=== PATIENT | female | born 1965 | race Caucasian/White ===

== ENCOUNTER 2025-03-21 07:14 | Inpatient (IN) | payer BC, OTHER ==
[~2025-03-21] VITALS: Ht 177.8 cm; Wt 97.3 kg
[~2025-03-21 07:14] MED LIST: MELA3TAB27 PO; METO25TA5 PO; OMEP20CA74 OR
--- NOTE | 2025-03-21 08:10 | ED.PDOC ---
Altered Mental Status HPI Comments 59 y/o F, brought in by , with PMHx of HTN, HLD, and depression presents to the ED for CC of ALOC. Patient's reports, he received a call from his at 0600 this morning (03/21/24) stating that she did not know what to do or where she was at. Patient's relays, that patient was last seen normal at 0515 this morning (03/21/25) when she got up from bed to get ready for work. Patient's endorse, that once he returned home patient was displaying increased confusion and disorientation asking constantly what day it was. Upon arrival to the ED, patient is able to recall her name and past surgery's however, is unable to recall the day and year. At this time patient is A&Ox2; transferred to ER bed 19 for further care. No other symptoms or modifiers are obtainable. Chief Complaint: ALOC Time Seen by MD: 07:45 Primary Care Provider: NONE Reviewed Notes: Nurses Notes, Medications, Allergies Allergies: Coded Allergies: NO KNOWN ALLERGIES (Unverified , 04/14/16) Home Meds Reported Medications Melatonin (KP MELATONIN) 3 Mg Tab, 1 TAB PO HS, #30 TAB 2 Refills 04/14/16 Omeprazole (PRILOSEC) 20 Mg Cap, 40 MG OR DAILY, CAP 04/14/16 Metoprolol Tartrate (Metoprolol Tartrate) 25 Mg Tab, 25 MG PO QPM for 30 Days, MG 04/14/16 Information Source: Patient Mode of Arrival: Ambulatory Severity: Moderate Timing: Hours Duration: Since onset Prehospital treatment: None Quality: Change in Behavior, Confusion Recent: None History of: None Associated Signs and Symptoms: None Past Medical History PAST MEDICAL HISTORY: Depression, High Lipids, HTN Surgical History: Unknown MEDICAL LABORATORY TECHNICIAN History: Unknown Family History Family History: Unknown Social History Smoker: Non-Smoker Alcohol: Denies ETOH Use Drugs: Denies Drug Use Lives In: Home Unable to Obtain due to: Altered Mental Status All Other Systems: Reviewed and Negative Physical Exam General Appearance: Moderate Distress HEENT: Normal ENT Inspection, Pharynx Normal, TMs Normal Neck: Full Range of Motion, Non-Tender, Normal, Normal Inspection Respiratory: Chest Non-Tender, Lungs Clear, No Accessory Muscle Use, No Respiratory Distress, Normal Breath Sounds Cardiovascular: No Edema, No JVD, No Murmur, No Gallop, Normal Peripheral Pulses, Regular Rate/Rhythm Breast Exam: Deferred Gastrointestinal: No Organomegaly, Non Tender, No Pulsatile Mass, Normal Bowel Sounds, Soft Genitalia: Deferred Pelvic: Deferred Rectal: Deferred Extremities: No calf tenderness, Normal capillary refill, Normal inspection, Normal range of motion, Non-tender, No pedal edema Musculoskeletal : Apperance: Normal Neurologic: Disoriented, No Motor Deficits, No Sensory Deficits Cerebellar Function: Normal Reflexes: Normal Skin: Dry, Normal Color, Warm Peripheral Pulses: 3+ Radial (R), 3+ Radial (L) Lymphatic: No Adenopathy Was a procedure done? Was a procedure done?: No Differential Diagnosis (ALOC) Differential Diagnosis: Dehydration, Hypoglycemia, DKA X-Ray, Labs, Meds, VS Vital Signs Date Time Temp Pulse Resp B/P (MAP) Pulse Ox O2 Delivery O2 Flow Rate FiO2 03/21/25 10:34 152/84 03/21/25 10:00 52 13 152/84 (106) 98 03/21/25 09:23 164/79 03/21/25 08:30 51 10 99 Room Air* 0 21 03/21/25 08:15 97.7 54 14 178/87 (117) 99 97.7 03/21/25 08:01 55 03/21/25 07:20 97.6 66 16 149/90 (109) 99 97.6 Lab Test 03/21/25 08:02 03/21/25 07:57 03/21/25 07:55 Range/Units White Blood Count 5.4 4.4-10.8 10^3/uL Red Blood Count 4.96 4.0-5.20 10^6/uL Hemoglobin 15.1 12.2-16.2 g/dL Hematocrit 45.1 36.0-46.0 % Mean Corpuscular Volume 90.8 80.0-100.0 fL Mean Corpuscular Hemoglobin 30.4 28.0-32.0 pg Mean Corpuscular Hemoglobin Concent 33.5 32.0-36.0 g/dL Red Cell Distribution Width 13.9 11.8-14.3 % Platelet Count 202 140-450 10^3/uL Mean Platelet Volume 9.2 6.9-10.8 fL Neutrophils (%) (Auto) 59.9 37.0-80.0 % Lymphocytes (%) (Auto) 25.8 10.0-50.0 % Monocytes (%) (Auto) 9.5 0.0-12.0 % Eosinophils (%) (Auto) 4.3 0.0-7.0 % Basophils (%) (Auto) 0.5 0.0-2.0 % Neutrophils # (Auto) 3.2 1.6-8.6 10 ^3/uL Lymphocytes # (Auto) 1.4 0.4-5.4 10 ^3/uL Monocytes # (Auto) 0.5 0-1.3 10 ^3/uL Eosinophils # (Auto) 0.2 0-0.8 10 ^3/uL Basophils # (Auto) 0 0-0.2 10 ^3/uL Nucleated Red Blood Cells 0.2 % Sodium Level 142 136-145 mmol/L Potassium Level 4.3 3.5-5.1 mmol/L Chloride Level 108 H 98-107 mmol/L Carbon Dioxide Level 26 20-31 mmol/L Anion Gap 8 5-15 Blood Urea Nitrogen 13 9-23 mg/dL Creatinine 0.77 0.550-1.02 mg/dL Glomerular Filtration Rate Calc 89 >90 mL/min BUN/Creatinine Ratio 16.9 10.0-20.0 Serum Glucose 104 74-106 mg/dL Calcium Level 10.2 8.7-10.4 mg/dL Total Bilirubin 0.8 0.2-1.0 mg/dL Aspartate Amino Transferase (AST) 24 <34 U/L Alanine Aminotransferase (ALT) 33 7-40 U/L Alkaline Phosphatase 108 46-116 U/L Total Protein 7.4 5.7-8.2 g/dL Albumin 4.9 H 3.2-4.8 g/dL Plasma/Serum Blood Alcohol < 3.0 <10 mg/dL POC Glucose 105 70-106 mg/dl Urine Color Light-yellow Yellow Urine Clarity Clear Clear Urine pH 6.5 5.0-9.0 Urine Specific [place] 1.007 1.001-1.035 Urine Protein Negative Negative Urine Ketones Negative Negative Urine Blood Negative Negative /uL Urine Nitrite Negative Negative Urine Bilirubin Negative Negative Urine Urobilinogen Normal Negative mg/dL Urine Leukocyte Esterase 1+ Negative /uL Urine RBC None seen 0 - 4 /hpf Urine Microscopic WBC 1 0-5 /HPF Urine Squamous Epithelial Cells Few <5 /hpf Urine Bacteria None seen None Seen /hpf Urine Glucose Normal Normal mg/dL Urine Opiates Screen Pending Urine Fentanyl Screen Pending Urine Barbiturates Screen Pending Urine Phencyclidine Screen Pending Urine Amphetamines Screen Pending Urine Benzodiazepines Screen Pending Urine Cocaine Screen Pending Urine Cannabinoids Screen Pending Current Medications Medications (Trade) Dose Ordered Sig/Dale Route Start Time Stop Time Status Last Admin Clonidine HCl (Catapres Tablet) 0.1 mg ONCE ONCE PO 03/21/25 08:15 03/21/25 08:16 DC 03/21/25 09:23 Lorazepam (Ativan Inj) 1 mg ONCE ONCE IV 03/21/25 08:30 03/21/25 08:31 DC 03/21/25 09:23 [place] [id number] Ph: [phone] DIAGNOSTIC IMAGING Diagnostic Imaging Report : [id number] Signed PATIENT: CARIE TRIPATHI JADEEACCT: [id number] UNIT: [id number] : 1965 LOC: ER ROOM / BED: / AGE / SEX: 59 / F ADM STATUS: REG ER SERVICE 0755 ORDERING PHYSICIAN: PRISCILA WESTBROOK MD PROCEDURE(s): HWOCT - HEAD WITHOUT CONTRAST REASON: altered ORDER NUMBER(s): [id number], ACCESSION NUMBER(s): [id number] EXAM: CT HEAD WITHOUT CONTRAST INDICATION: altered TECHNIQUE: CT of the head without intravenous contrast. Radiation Dose Information: CT Dose: CTDI volume is 58.04 mGy. Dose-length product is 1143.76 mGy*cm The dose indicators for CT are the volume Computed Tomography (CT) Dose Index (CTDIvol) and the Dose Length Product (DLP), and are measured in units of mGy and mGy-cm, respectively. These indicators are not patient dose, but values generated from the CT scanner acquisition factors. The report includes radiation exposure data for exposures received during this examination. COMPARISON: None FINDINGS: There is no evidence of acute intracranial hemorrhage, extra-axial collection, mass effect, midline shift, herniation or hydrocephalus. The ventricles, sulci and cisterns are age appropriate. The bhandari-white differentiation is intact. Patchy periventricular and subcortical white matter hypoattenuation is nonspecific but may be related to small vessel ischemic disease. The visualized paranasal sinuses and mastoid air cells are clear. The surrounding soft tissues and osseous structures are unremarkable. IMPRESSION: No acute intracranial abnormality. ATED BY: ANDREA LORD MD DICTATED DATE/TIME: 03/21/25833 SIGNED BY: ANDREA LORD MD SIGNED DATE/TIME: 03/21/25833 CC: Patient disoriented. Vitals stable. Can not remember events. Answering all questions. Blood sugar within normal limits. History of hypertension. Symptoms all started this morning. Possibly will need MRI. Neurology consultation. Unexplained memory loss. Possible early dementia. Blood pressure slightly elevated. Was given clonidine. Explained to significant other. Continue monitoring. Time of 1ST Reevaluation: 08:15 Reevaluation 1ST: Unchanged Patient Education/Counseling: Diagnosis, Treatment Family Education/Counseling: No Family Present SEPSIS Sepsis Screen Date sepsis recognized/suspect: Mar 21, 2025 Time Sepsis recognized/suspect: 719 Recent Procedure: No On Antibiotic Therapy: No Respiratory Rate >20: No Heart Rate >90: No Temp<36 C (96.8 F) or >38.3 C: No SBP <90 or MAP <65 mmHG: No New Acute Mental Status Change: No Is the patient on CPAP, BIPAP,: No Physician Orders Drug Screen (03/21/25 07:55) Director Of Events (03/21/25 07:55) Head Without Contrast (03/21/25 07:55) Vital Signs Date Time Temp Pulse Resp B/P (MAP) Pulse Ox O2 Delivery O2 Flow Rate FiO2 03/21/25 10:34 152/84 03/21/25 10:00 52 13 152/84 (106) 98 03/21/25 09:23 164/79 03/21/25 08:30 51 10 99 Room Air* 0 21 03/21/25 08:15 97.7 54 14 178/87 (117) 99 97.7 03/21/25 08:01 55 03/21/25 07:20 97.6 66 16 149/90 (109) 99 97.6 Laboratory Tests Test 03/21/25 08:02 White Blood Count 5.4 10^3/uL (4.4-10.8) Medications Medications Dose Ordered Sig/Dale Route Start Time Stop Time Status Last Admin Dose Admin Clonidine HCl 0.1 mg ONCE ONCE PO 03/21/25 08:15 03/21/25 08:16 DC 03/21/25 09:23 Lorazepam 1 mg ONCE ONCE IV 03/21/25 08:30 03/21/25 08:31 DC 03/21/25 09:23 Departure 1 Departure Time of Disposition: 08:14 Impression: Primary Impression: Metabolic encephalopathy Additional Impression: HTN (hypertension) Qualified Codes: I10 - Essential (primary) hypertension Disposition: ADMITTED INPATIENT Admit to: Med Surg Condition: Guarded Critical Care Note Critical Care Time?: No Stability Stability form required: No Heart Score Heart Score: Heart Score Response (Comments) Value History N/A 0 EKG N/A 0 Age N/A 0 Risk Factors N/A 0 Troponin N/A 0 Total 0 I personally scribed for PRISCILA WESTBROOK MD ([email or web address]) on 03/21/25 at 08:10. Electronically submitted by Hoda Rodarte ([place]). I personally scribed for PRISCILA WESTBROOK MD ([email or web address]) on 03/21/25 at 08:12. Electronically submitted by Hoda Rodarte ([place]). I personally scribed for PRISCILA WESTBROOK MD ([email or web address]) on 03/21/25 at 08:44. Electronically submitted by Hoda Rodarte ([place]). PRISCILA WESTBROOK MD Mar 21, 2025 08:10
[2025-03-21 08:30] VITALS: PULSE 51; RESP 10; O2SAT 99
--- NOTE | 2025-03-21 08:37 | DVH ---
EXAM: CT HEAD WITHOUT CONTRAST INDICATION: altered TECHNIQUE: CT of the head without intravenous contrast. Radiation Dose Information: CT Dose: CTDI volume is 58.04 mGy. Dose-length product is 1143.76 mGy*cm The dose indicators for CT are the volume Computed Tomography (CT) Dose Index (CTDIvol) and the Dose Length Product (DLP), and are measured in units of mGy and mGy-cm, respectively. These indicators are not patient dose, but values generated from the CT scanner acquisition factors. The report includes radiation exposure data for exposures received during this examination. COMPARISON: None FINDINGS: There is no evidence of acute intracranial hemorrhage, extra-axial collection, mass effect, midline s hift, herniation or hydrocephalus. The ventricles, sulci and cisterns are age appropriate. The bhandari-white differentiation is intact. Patchy periventricular and subcortical white matter hypoattenuation is nonspecific but may be related to small vessel ischemic disease. The visualized paranasal sinuses and mastoid air cells are clear. The surrounding soft tissues and osseous structures are unremarkable. IMPRESSION: No acute intracranial abnormality.
[2025-03-21 08:41] LABS: Basophils # (auto) 0 10 ^3/uL (0-0.2); Basophils % (auto) 0.5 % (0.0-2.0); Eosinophils # (auto) 0.2 10 ^3/uL (0-0.8); Eosinophils % (auto) 4.3 % (0.0-7.0); Hematocrit 45.1 % (36.0-46.0); Hemoglobin 15.1 g/dL (12.2-16.2); Lymphocytes # (auto) 1.4 10 ^3/uL (0.4-5.4); Lymphocytes % (auto) 25.8 % (10.0-50.0); Mean Corpuscular Hemoglobin 30.4 pg (28.0-32.0); Mean Corpuscular Hgb Conc. 33.5 g/dL (32.0-36.0); Mean Corpuscular Volume 90.8 fL (80.0-100.0); Monocytes # (auto) 0.5 10 ^3/uL (0-1.3); Monocytes % (auto) 9.5 % (0.0-12.0); Neutrophils # (auto) 3.2 10 ^3/uL (1.6-8.6); Neutrophils % (auto) 59.9 % (37.0-80.0); Nucleated Red Blood Cells % 0.2 %; Platelet Count (auto) 202 10^3/uL (140-450); Red Blood Cells 4.96 10^6/uL (4.0-5.20); Red Cell Distribution Width 13.9 % (11.8-14.3); White Blood Cell 5.4 10^3/uL (4.4-10.8)
[2025-03-21 08:59] LABS: Alanine Aminotransferase 33 U/L (7-40); Alkaline Phosphatase 108 U/L (46-116); Anion Gap 8 (5-15); Aspartate Aminotransferase 24 U/L (<34); BUN/Creatinine Ratio 16.9 (10.0-20.0); Blood Urea Nitrogen 13 mg/dL (9-23); Calcium 10.2 mg/dL (8.7-10.4); Carbon Dioxide 26 mmol/L (20-31); Glucose 104 mg/dL (74-106); Potassium 4.3 mmol/L (3.5-5.1); Sodium 142 mmol/L (136-145); Total Protein 7.4 g/dL (5.7-8.2)
[2025-03-21 09:00] LABS: Bilirubin, Total 0.8 mg/dL (0.2-1.0)
[2025-03-21 09:02] LABS: Albumin 4.9 g/dL (3.2-4.8); Chloride 108 mmol/L (98-107)
[2025-03-21 09:23] LABS: Blood Alcohol < 3.0 mg/dL (<10)
[2025-03-21] MEDS: cloNIDine HCL 0.1 MG TAB PO ONE (09:23)
[2025-03-21] MEDS: LORazepam 2MG/ML-1ML VIAL IV ONE (09:23)
[2025-03-21 10:19] LABS: Urine Bacteria None Seen /hpf (None Seen)
[2025-03-21 10:32] LABS: Urine Blood Negative /uL (Negative); Urine Clarity Clear (Clear); Urine Color Light-Yellow (Yellow); Urine Protein, UAD Negative (Negative); Urine Specific Gravity 1.007 (1.001-1.035); Urine Squamous Epithelial Cell FEW /hpf (<5); Urine Urobilinogen Normal (Negative); Urine WBC 1 /HPF (0-5); Urine pH 6.5 (5.0-9.0)
[2025-03-21 10:54] LABS: Amphetamine Screen, Urine Neg (NEGATIVE); Barbiturate Scree,Urine Neg (NEGATIVE); Benzodiazephine Screen, Urine Neg (NEGATIVE); Cannabinoid Screen, Urine Neg (NEGATIVE); Cocaine Screen, Urine Neg (NEGATIVE); Opiate Scree,Urine Neg (NEGATIVE); Phencyclidine Screen, Urine Neg (NEGATIVE)
[2025-03-21] MEDS ORDERED: AMLO1TAB22 PO (11:02)
[2025-03-21] MEDS ORDERED: ESCI1TAB36 PO (11:02)
[2025-03-21] MEDS ORDERED: ATOR10TA52 PO (11:02)
[2025-03-21] MEDS ORDERED: NITROGLYCERIN 0.4 MG SL TAB SL PRN (11:15)
[2025-03-21] MEDS ORDERED: ONDANSETRON HCL 4 MG/2 ML VIAL IV PRN (11:15)
[2025-03-21] MEDS ORDERED: HYDROcodone-ACET 5/325MG TAB PO PRN (11:15)
[2025-03-21] MEDS ORDERED: DOCUSATE SOD 100 MG CAP PO PRN (11:15)
[2025-03-21] MEDS ORDERED: MORPHINE SULFATE INJ 2 MG/ml SYRG IV PRN (11:15)
--- NOTE | 2025-03-21 12:13 | DVHHP2 ---
History of Present Illness Reason for Visit: ALOC History of Present Illness Edenilson Banuelos is a 59-year-old female with past medical history of hypertension, hyperlipidemia, and depression, who was brought to the hospital due to ALOC. Per the patient's her last known well time was 0515 this morning (03/21/2025). He states they are both usually up and awake together in the morning. He leaves about 0515 for work then she usually leaves about 0600 and calls him. This morning when he left at 0515 she was good. At about 0600 she called him confused and couldn't remember what she is supposed to do. He told her to just stay home and he would come get her. When he got there she could not remember what she is supposed to do, could remember senior care items, but not short term. She does not know the date, or why she is in the hospital. He states she keeps asking the same questions over and over again to him. Cardiovascular: HTN, hyperipidemia Psych: Depression Past Surgical History: Appendectomy, Cholecystectomy, Hysterectomy Smoke: No ALCOHOL: none Drugs: None Lives: with Family Domestic Violence: Neg Review of Systems Constitutional: No: Fever, Chills, Sweats, Weakness, Malaise, Other Eyes: No: Pain, Vision change, Conjunctivae inflammation, Eyelid inflammation, Other, Redness ENT: No: Ear pain, Ear discharge, Nose pain, Nose discharge, Nose congestion, Mouth pain, Mouth swelling, Throat pain, Throat swelling, Other Respiratory: No: Cough, Dry, Shortness of breath, SOB with excertion, Wheezing, Hemoptysis, Pleuritic Pain, Sputum, Wheezing, Other Cardiovascular: No: Chest Pain, Palpitations, Orthopnea, Paroxysmal Noc. Dyspnea, Edema, Lt Headedness, Other Gastrointestinal: No: Nausea, Vomiting, Abdominal Pain, Diarrhea, Constipation, Melena, Hematochezia, Other Genitourinary: No Dysuria, No Frequency, No Incontinence, No Hematuria, No Retention, No Other Musculoskeletal: No: other, neck pain, shoulder pain, arm pain, back pain, hand pain, leg pain, foot pain Skin: No: Rash, Lesions, Jaundice, Bruising, Other Neurological: Change in speech (repetitive, ), Confusion; No: Weakness, Numbness, Incoordination, Seizures, Other Allergies: Coded Allergies: NO KNOWN ALLERGIES (Unverified , 04/14/16) Medications Current Medications Medications Dose Ordered Sig/Dale Route Start Time Stop Time Status Last Admin Dose Admin Acetaminophen/ Hydrocodone Bitart 1 tab Q4HP PRN PO 03/21/25 11:15 UNV Ondansetron HCl 4 mg Q4HP PRN IV 03/21/25 11:15 UNV Docusate Sodium 100 mg BIDPRN PRN PO 03/21/25 11:15 UNV Acetaminophen 650 mg Q6HP PRN PO 03/21/25 11:15 UNV Nitroglycerin 0.4 mg Q5MINP PRN SL 03/21/25 11:15 UNV Morphine Sulfate 2 mg Q30M PRN IV 03/21/25 11:15 UNV Amlodipine Besylate 5 mg HS PO 03/21/25 22:00 UNV Patient Own Medication 1 tab HS PO 03/21/25 22:00 UNV Patient Own Medication 1 tab DAILY PO 03/22/25 10:00 UNV Exam Vital Signs Vital Signs Date Time Temp Pulse Resp B/P (MAP) Pulse Ox O2 Delivery O2 Flow Rate FiO2 03/21/25 10:34 152/84 03/21/25 10:00 52 13 98 03/21/25 08:30 Room Air* 0 21 03/21/25 08:15 97.7 97.7 General Appearance: Alert, Oriented X3, Cooperative, mild distress HEENT: Atraumatic, PERRLA Respiratory: Clear to auscultation, Normal air movement Cardiovascular: Normal S1, Normal S2, Other (SB-SR) Abdominal: Normal bowel sounds, Soft, No tenderness, No hepatospenomegaly Extremities: No clubbing, No cyanosis, No edema, Normal pulses, No tenderness/swelling Skin: No rashes, No breakdown, No significant lesion Neuro: Normal gait, Normal speech, Strength at 5/5 X4 ext, Normal tone Psych/Mental Status: Mental status NL, Mood NL Labs/Xrays Labs Test 03/21/25 08:02 03/21/25 07:57 03/21/25 07:55 Range/Units White Blood Count 5.4 4.4-10.8 10^3/uL Red Blood Count 4.96 4.0-5.20 10^6/uL Hemoglobin 15.1 12.2-16.2 g/dL Hematocrit 45.1 36.0-46.0 % Mean Corpuscular Volume 90.8 80.0-100.0 fL Mean Corpuscular Hemoglobin 30.4 28.0-32.0 pg Mean Corpuscular Hemoglobin Concent 33.5 32.0-36.0 g/dL Red Cell Distribution Width 13.9 11.8-14.3 % Platelet Count 202 140-450 10^3/uL Mean Platelet Volume 9.2 6.9-10.8 fL Neutrophils (%) (Auto) 59.9 37.0-80.0 % Lymphocytes (%) (Auto) 25.8 10.0-50.0 % Monocytes (%) (Auto) 9.5 0.0-12.0 % Eosinophils (%) (Auto) 4.3 0.0-7.0 % Basophils (%) (Auto) 0.5 0.0-2.0 % Neutrophils # (Auto) 3.2 1.6-8.6 10 ^3/uL Lymphocytes # (Auto) 1.4 0.4-5.4 10 ^3/uL Monocytes # (Auto) 0.5 0-1.3 10 ^3/uL Eosinophils # (Auto) 0.2 0-0.8 10 ^3/uL Basophils # (Auto) 0 0-0.2 10 ^3/uL Nucleated Red Blood Cells 0.2 % Sodium Level 142 136-145 mmol/L Potassium Level 4.3 3.5-5.1 mmol/L Chloride Level 108 H 98-107 mmol/L Carbon Dioxide Level 26 20-31 mmol/L Anion Gap 8 5-15 Blood Urea Nitrogen 13 9-23 mg/dL Creatinine 0.77 0.550-1.02 mg/dL Glomerular Filtration Rate Calc 89 >90 mL/min BUN/Creatinine Ratio 16.9 10.0-20.0 Serum Glucose 104 74-106 mg/dL Calcium Level 10.2 8.7-10.4 mg/dL Total Bilirubin 0.8 0.2-1.0 mg/dL Aspartate Amino Transferase (AST) 24 <34 U/L Alanine Aminotransferase (ALT) 33 7-40 U/L Alkaline Phosphatase 108 46-116 U/L Total Protein 7.4 5.7-8.2 g/dL Albumin 4.9 H 3.2-4.8 g/dL Plasma/Serum Blood Alcohol < 3.0 <10 mg/dL POC Glucose 105 70-106 mg/dl Urine Color Light-yellow Yellow Urine Clarity Clear Clear Urine pH 6.5 5.0-9.0 Urine Specific [place] 1.007 1.001-1.035 Urine Protein Negative Negative Urine Ketones Negative Negative Urine Blood Negative Negative /uL Urine Nitrite Negative Negative Urine Bilirubin Negative Negative Urine Urobilinogen Normal Negative mg/dL Urine Leukocyte Esterase 1+ Negative /uL Urine RBC None seen 0 - 4 /hpf Urine Microscopic WBC 1 0-5 /HPF Urine Squamous Epithelial Cells Few <5 /hpf Urine Bacteria None seen None Seen /hpf Urine Glucose Normal Normal mg/dL Urine Opiates Screen Neg NEGATIVE Urine Fentanyl Screen Neg NEGATIVE Urine Barbiturates Screen Neg NEGATIVE Urine Phencyclidine Screen Neg NEGATIVE Urine Amphetamines Screen Neg NEGATIVE Urine Benzodiazepines Screen Neg NEGATIVE Urine Cocaine Screen Neg NEGATIVE Urine Cannabinoids Screen Neg NEGATIVE EXAM: CT HEAD WITHOUT CONTRAST FINDINGS: There is no evidence of acute intracranial hemorrhage, extra-axial collection, mass effect, midline shift, herniation or hydrocephalus. The ventricles, sulci and cisterns are age appropriate. The bhandari-white differentiation is intact. Patchy periventricular and subcortical white matter hypoattenuation is nonspecific but may be related to small vessel ischemic disease. The visualized paranasal sinuses and mastoid air cells are clear. The surrounding soft tissues and osseous structures are unremarkable. IMPRESSION: No acute intracranial abnormality. Assessment/Plan Assessment/Plan Assessment: Possible stroke, Metabolic encephalopathy, Hypertension, Bradycardia, Hyperlipemia, Depression, Plan: Admit to Tele, Neurology consult, MRI of brain, ECHO, Carotid duplex, Consider cardiology consult if symptoms persist, Home medications reconciled, Plan discussed with: Patient My Orders Orders - ANTHONY NOONAN Procedure Category Date Status Time Admit ADMIT 03/21/25 Transmitted 11:01 Code Status CODE 03/21/25 Transmitted 11:01 2 Gm Sodium Diet DIET 03/21/25 Transmitted Lunch Hydrocodone-Acet PHA 03/21/25 Logged 5/325mg Tab (Cadet 11:15 Ondansetron Hcl PHA 03/21/25 Logged (Zofran) 11:15 Docusate Sodium PHA 03/21/25 Logged Capsule (Colace 11:15 Complete Blood Count LAB 03/22/25 Verified 04:00 Comprehensive LAB 03/22/25 Verified Metabolic Panel 04:00 Condition: Serious JAMARCUS 03/21/25 In Process 11:01 Acetaminophen Tablet PHA 03/21/25 Logged (Tylenol Tablet) 11:[address] [facility] 03/21/25 Logged Sublingual (Ntrostat 11:[address] [facility] 03/21/25 Logged Injection 11:15 Stat Ekg For Chest [facility] 03/21/25 In Process Pain 11:01 Notify Of Changes [facility] 03/21/25 In Process From Base 11:01 Manager Of Engineering For [facility] 03/21/25 In Process 24 Hours 11:01 Emergency Dysrhythmia [facility] 03/21/25 In Process Protocol 11:01 Rhythm Strips Once [facility] 03/21/25 In Process Every Shift 11:01 Oxygen By Nasal RT 03/21/25 Transmitted Cannula 11:01 * Neurology Consult CONS 03/21/25 Transmitted 11:01 Carotid Duplx W Color US 03/21/25 Logged DOP 11:01 Echo 2d Mode Cardiac US 03/21/25 Logged DOP 11:01 Amlodipine Tablet PHA 03/21/25 Logged (Norvasc Tablet) 22:00 (Nf) Atorvastatin PHA 03/21/25 Transmitted Calcium 22:00 (Nf) Escitalopram PHA 03/22/25 Logged Oxalate 10:00 Brain Head Wo Contrast MRI 03/21/25 Logged 11:59 Date of Service: Mar 21, 2025 Billing Provider: ANTHONY NOONAN Common Visit Codes: [id number] INP/OBS CARE (MOD) ANTHONY NOONAN Mar 21, 2025 12:13
--- NOTE | 2025-03-21 12:53 | DVH ---
Carotid Duplex Date: 03/21/2025 12:08 PM Clinical History: Possible stroke Comparison: None Technique: Duplex Doppler evaluation of the extracranial carotid and vertebral arteries including col or Doppler and spectral/pulsed waveform analysis was performed. Findings: Velocities and ratios within normal limits. IMPRESSION: No hemodynamically significant stenosis noted in the right carotid system. No hemodynamically significant stenosis noted in the left carotid system. Reference: Radiology 2003; 229:[id number]
--- NOTE | 2025-03-21 14:05 | DVH ---
PROCEDURE: MRI BRAIN HEAD WO CONTRAST Indication: Possible stroke, confusion COMPARISON: 03/21/2020 TECHNIQUE: Multiplanar multisequence images of the brain are obtained. FINDINGS: There is no abnormal diffusion restriction. Mild periventricular and subcortical white matter T2 and FLAIR hyperintense changes. There is no intracranial hemorrhage. No extra-axial fluid collection, mas s effect or midline shift. The ventricles are midline and normal in size. The cisterns are patent. No rmal intracranial flow voids are preserved. No abnormal susceptibility signal. Mastoids well pneumatized. Mucosal thickening ethmoids, right maxillary sinus The visualized orbits are unremarkable. IMPRESSION: No acute cerebrovascular ischemia. Mild chronic microvascular ischemic changes. Paranasal sinus disease.
[2025-03-21 20:00] VITALS: PULSE 87; RESP 15; O2SAT 94
--- NOTE | 2025-03-21 21:15 | DVHINCON2 ---
Date of service: Mar 21, [address] Kern Reason for Consultation Possible stroke History of Present Illness is a 59 years old right-handed female with a history of hypertension, dyslipidemia, obesity, he was brought to the [facility] on 03/21/2025 with a chief complaint of altered mental status, at that time, she is alert and fully oriented, she provided the following history As usual, she got up around 430 a.m. on 03/21/2025, later, she remembers/Grubbs's about to leave for work, but the next memory was waking up in the emergency room around 11-12 in the morning. According to her , he refills phone call from his around 6:00 a.m. stating that she was confused, not know what to do, and when he returned home, he found the patient was very confused. In the emergency room, the patient was noticed to be mentally altered, oriented x2. He has never had similar problem before, he denies history of stroke, seizure disorder, he denies recent acute illness such as chills, fever, coughing, n ausea, vomiting She does not know but her has complained about her loud snoring, sometimes she wakes up in the morning not well refreshed, but she denies fatigue or sleepiness during the daytime. I offered, but she declined a trial of APAP in the hospital, but she is open to have sleep medicine evaluation as outpatient UDS, 03/21/2025: Negative Plasma alcohol, 03/21/2025: Normal Urinalysis, 03/21/2025: WBC: One, urine leukocyte esterase: 1+ CBC, 03/21/2025: Unremarkable CMP, 03/21/2025, unremarkable Carotid Doppler, 03/21/2025: No hemodynamically significant stenosis noted in the right carotid system. No hemodynamically significant stenosis noted in the left carotid system CT head, 03/21/2025: No acute intracranial abnormality. MRI head, 03/21/2025: No acute cerebrovascular ischemia. Mild chronic microvascular ischemic changes. Paranasal sinus disease. Past Medical History Hypertension, dyslipidemia, obesity Past Surgical History Appendectomy, cholecystectomy, tubal ligation, tonsillectomy Family History: Cancer G8 FATHER Family history: Depression (situation) G8 MOTHER Family history: Diabetes mellitus G8 MOTHER Family history: Hypertension G8 MOTHER G8 SISTER G8 SISTER Family History Hypertension, diabetes, cancer, depression Social History She was tobacco smoke, she denies a history of drug or alcohol abuse Allergies: Coded Allergies: NO KNOWN ALLERGIES (Unverified , 04/14/16) Home Meds Reported Medications Amlodipine Besylate (Amlodipine Besylate) 5 Mg Tab, 1 TAB PO HS 03/21/25 Escitalopram Oxalate (ESCITALOPRAM OXALATE) 10 Mg Tab, 1 TAB PO DAILY 03/21/25 Atorvastatin Calcium (ATORVASTATIN CALCIUM) 10 Mg Tab, 1 TAB PO HS 03/21/25 Melatonin (KP MELATONIN) 3 Mg Tab, 1 TAB PO HS, #30 TAB 2 Refills 04/14/16 Omeprazole (PRILOSEC) 20 Mg Cap, 40 MG OR DAILY, CAP 04/14/16 Discontinued Reported Medications Metoprolol Tartrate (Metoprolol Tartrate) 25 Mg Tab, 25 MG PO QPM for 30 Days, MG 04/14/16 Current Medications Current Medications Medications (Trade) Dose Ordered Sig/Dale Route PRN Reason Start Time Stop Time Status Last Admin Acetaminophen/ Hydrocodone Bitart ([place] 5/325MG Tab) 1 tab Q4HP PRN PO MODERATE PAIN (4-6 PAIN SCALE) 03/21/25 11:15 Ondansetron HCl (Zofran) 4 mg Q4HP PRN IV NAUSEA / VOMITING 03/21/25 11:15 Docusate Sodium (Colace Capsule) 100 mg BIDPRN PRN PO FOR CONSTIPATION 03/21/25 11:15 Acetaminophen (Tylenol Tablet) 650 mg Q6HP PRN PO PAIN SCALE 1-3 OR TEMP>100.4 03/21/25 11:15 Nitroglycerin (Ntrostat Sublingual) 0.4 mg Q5MINP PRN SL FOR CHEST PAIN 03/21/25 11:15 Morphine Sulfate 2 mg Q30M PRN IV FOR CHEST PAIN 03/21/25 11:15 Amlodipine Besylate (Norvasc Tablet) 5 mg HS PO 03/21/25 22:00 Atorvastatin Calcium (Lipitor) 10 mg HS PO 03/21/25 22:00 Patient Own Medication 1 tab DAILY PO 03/22/25 10:00 UNV Citalopram Hydrobromide (CeleXA TABLET) 20 mg DAILY PO 03/22/25 10:00 Review of Systems As above, the other systems are negative Vital Signs Vital Signs Date Time Temp Pulse Resp B/P (MAP) Pulse Ox O2 Delivery O2 Flow Rate FiO2 03/21/25 20:00 87 15 94 Room Air* 0 21 03/21/25 20:00 114/73 (87) 03/21/25 16:00 98.3 98.3 Physical Exam GENERAL EXAM: General: the patient is well developed and nourished. No acute distress. HEENT: Normocephalic, neck is supple, no carotid bruits. No mass. RESPIRATORY: Normal respiratory effort with symmetrical lung expansion. Lungs clear to auscultation. CARDIOVASCULAR: Regular rate and rhythm with no murmurs. S1, S2. ABDOMEN: Soft, nontender, normal bowel sound NEUROLOGICAL: MENTAL STATUS: Awake and alert. Oriented to person, place, time and general circumstances. Able to give personal history. SPEECH, LANGUAGE, HIGHER CORTICAL FUNCTION: no aphasia or dysathria. CRANIAL NERVES: #2: Intact visual epttit to confrontation. The optic discs were sharp. #3,4,6: Pupils are equal, round and reactive. EOMs full and conjugate. No nystagmus. #5: Facial sensation intact in all three divisions bilaterally. Mandibular strength intact. #7: Facial muscles symmetrical and strength intact. #8: Hearing grossly normal to voice. #9,10: Uvula and soft palate rise in the midline. Swallow and voice are normal. #11: Trapezius and sternomastoid strength intact bilaterally. #12: Tongue midline. No fasciculations or atrophy. SENSATION: Sensation to touch and pinprick is normal. MOTOR: Normal tone in the upper and lower extremity. Normal muscle bulk. No fasciculations. No abnormal movements or posturing. Muscle strength of the major groups in the upper extremities is 5/5. Muscle strength of the major groups in the lower extremities is 5/5. REFLEXES: Deep tendon reflexes normal and symmetrical. No pathological reflexes. CEREBELLAR/COORDINATION: Finger to nose and heel to samuel are normal bilaterally. GAIT/STATION: deferred. Labs/Diagnostic Data Labs Test 03/21/25 08:02 03/21/25 07:57 03/21/25 07:55 Range/Units White Blood Count 5.4 4.4-10.8 10^3/uL Red Blood Count 4.96 4.0-5.20 10^6/uL Hemoglobin 15.1 12.2-16.2 g/dL Hematocrit 45.1 36.0-46.0 % Mean Corpuscular Volume 90.8 80.0-100.0 fL Mean Corpuscular Hemoglobin 30.4 28.0-32.0 pg Mean Corpuscular Hemoglobin Concent 33.5 32.0-36.0 g/dL Red Cell Distribution Width 13.9 11.8-14.3 % Platelet Count 202 140-450 10^3/uL Mean Platelet Volume 9.2 6.9-10.8 fL Neutrophils (%) (Auto) 59.9 37.0-80.0 % Lymphocytes (%) (Auto) 25.8 10.0-50.0 % Monocytes (%) (Auto) 9.5 0.0-12.0 % Eosinophils (%) (Auto) 4.3 0.0-7.0 % Basophils (%) (Auto) 0.5 0.0-2.0 % Neutrophils # (Auto) 3.2 1.6-8.6 10 ^3/uL Lymphocytes # (Auto) 1.4 0.4-5.4 10 ^3/uL Monocytes # (Auto) 0.5 0-1.3 10 ^3/uL Eosinophils # (Auto) 0.2 0-0.8 10 ^3/uL Basophils # (Auto) 0 0-0.2 10 ^3/uL Nucleated Red Blood Cells 0.2 % Sodium Level 142 136-145 mmol/L Potassium Level 4.3 3.5-5.1 mmol/L Chloride Level 108 H 98-107 mmol/L Carbon Dioxide Level 26 20-31 mmol/L Anion Gap 8 5-15 Blood Urea Nitrogen 13 9-23 mg/dL Creatinine 0.77 0.550-1.02 mg/dL Glomerular Filtration Rate Calc 89 >90 mL/min BUN/Creatinine Ratio 16.9 10.0-20.0 Serum Glucose 104 74-106 mg/dL Calcium Level 10.2 8.7-10.4 mg/dL Total Bilirubin 0.8 0.2-1.0 mg/dL Aspartate Amino Transferase (AST) 24 <34 U/L Alanine Aminotransferase (ALT) 33 7-40 U/L Alkaline Phosphatase 108 46-116 U/L Total Protein 7.4 5.7-8.2 g/dL Albumin 4.9 H 3.2-4.8 g/dL Plasma/Serum Blood Alcohol < 3.0 <10 mg/dL POC Glucose 105 70-106 mg/dl Urine Color Light-yellow Yellow Urine Clarity Clear Clear Urine pH 6.5 5.0-9.0 Urine Specific [place] 1.007 1.001-1.035 Urine Protein Negative Negative Urine Ketones Negative Negative Urine Blood Negative Negative /uL Urine Nitrite Negative Negative Urine Bilirubin Negative Negative Urine Urobilinogen Normal Negative mg/dL Urine Leukocyte Esterase 1+ Negative /uL Urine RBC None seen 0 - 4 /hpf Urine Microscopic WBC 1 0-5 /HPF Urine Squamous Epithelial Cells Few <5 /hpf Urine Bacteria None seen None Seen /hpf Urine Glucose Normal Normal mg/dL Urine Opiates Screen Neg NEGATIVE Urine Fentanyl Screen Neg NEGATIVE Urine Barbiturates Screen Neg NEGATIVE Urine Phencyclidine Screen Neg NEGATIVE Urine Amphetamines Screen Neg NEGATIVE Urine Benzodiazepines Screen Neg NEGATIVE Urine Cocaine Screen Neg NEGATIVE Urine Cannabinoids Screen Neg NEGATIVE Assessment Altered mental status on 03/21/2025 Transient global amnesia Rule out TIA/stroke Rule out partial complex seizure Sleep-related breathing disorder Obesity Plan/Recommendation Monitoring Supportive treatment Telemetry EEG Weight control Hypersomnia precaution Address her sleep-related breathing disorder as outpatient More recommendation per clinical course Progress: Poor This medical document was created using an electronic medical record system with [employer] computerized dictation system. Although this document has been carefully reviewed, there may still be some phonetic and typographical errors. These areas are purely typographical due to imperfections of the software programs, and do not reflect any compromise in the patient's medical care. Plan discussed with: Patient, Other ANYA BARRIENTOS MD Mar 21, 2025 21:15
[2025-03-21 21:47] VITALS: BP 126/89; PULSE 84; RESP 18; TEMP 97.4; O2SAT 93
[2025-03-21] MEDS: ATORVASTATIN 20 MG TAB PO SCH (22:24)
[2025-03-21] MEDS: amLODIPine BESYLATE 5 MG TAB PO SCH (22:24)
[2025-03-22] VITALS (8 sets, daily range): BP systolic 114–135; BP diastolic 64–89; PULSE 49–72; RESP 16–18; TEMP 97.4–98.3; O2SAT 92–97
[2025-03-22 07:11] LABS: Alanine Aminotransferase 24 U/L (7-40); Albumin 4.6 g/dL (3.2-4.8); Alkaline Phosphatase 99 U/L (46-116); Anion Gap 9 (5-15); Aspartate Aminotransferase 19 U/L (<34); BUN/Creatinine Ratio 17.8 (10.0-20.0); Blood Urea Nitrogen 13 mg/dL (9-23); Carbon Dioxide 24 mmol/L (20-31); Glucose 99 mg/dL (74-106); Potassium 4.5 mmol/L (3.5-5.1); Sodium 144 mmol/L (136-145); Total Protein 6.7 g/dL (5.7-8.2)
[2025-03-22 07:12] LABS: Bilirubin, Total 0.7 mg/dL (0.2-1.0); Chloride 111 mmol/L (98-107)
[2025-03-22 07:13] LABS: Basophils # (auto) 0 10 ^3/uL (0-0.2); Basophils % (auto) 0.4 % (0.0-2.0); Eosinophils # (auto) 0.3 10 ^3/uL (0-0.8); Eosinophils % (auto) 4.3 % (0.0-7.0); Hematocrit 43.5 % (36.0-46.0); Lymphocytes # (auto) 1.8 10 ^3/uL (0.4-5.4); Lymphocytes % (auto) 29.6 % (10.0-50.0); Mean Corpuscular Hemoglobin 31.1 pg (28.0-32.0); Mean Corpuscular Hgb Conc. 34.5 g/dL (32.0-36.0); Mean Corpuscular Volume 89.9 fL (80.0-100.0); Monocytes # (auto) 0.5 10 ^3/uL (0-1.3); Monocytes % (auto) 8.6 % (0.0-12.0); Neutrophils # (auto) 3.5 10 ^3/uL (1.6-8.6); Neutrophils % (auto) 57.1 % (37.0-80.0); Nucleated Red Blood Cells % 0.2 %; Platelet Count (auto) 204 10^3/uL (140-450); Red Blood Cells 4.83 10^6/uL (4.0-5.20); Red Cell Distribution Width 13.7 % (11.8-14.3); White Blood Cell 6.1 10^3/uL (4.4-10.8)
[2025-03-22] MEDS: CITALOPRAM HYDROBR 20 MG TAB PO SCH (09:59)
[2025-03-22] MEDS ORDERED: PATIENTS OWN MEDICATION (Escitalopram Oxalate 1 TAB) PO SCH (10:00)
[2025-03-22] MEDS: ACETAMINOPHEN 325 MG TAB PO PRN (16:10)
--- NOTE | 2025-03-22 16:25 | DVHPN2 ---
Assessment/Plan Assessment/Plan progress note 59 F with HTN and MDD admitted for altered mental status. on my assessment she is not altered anymore. seen by neuro physical exam aox4 bao mmm ctab s1s2 rrr abdomen soft nontender no le edema labs ekg imaging reviewed assesssment and plan delirium? stroke ruled out seizure? doubt obesity possible TERE HTN MDD neuro recs appreciated pending eeg MRI op pcp follow up for sleep study resume tory emeds diet cardiac full code Plan discussed with: Patient Date of Service: Mar 23, 2025 Billing Provider: LARISA JANSEN MD Common Visit Codes: [id number] INP/OBS CARE(HIGH) LARISA JANSEN MD Mar 22, 2025 16:25
--- NOTE | 2025-03-22 22:28 | DVHPN2 ---
Progress Note - Dictate Date Seen: Mar 22, 2025 Medical Necessity Reason Pt with a Central, PICC or Fol: No Subjective is a 59 years old right-handed female with a history of hypertension, dyslipidemia, obesity, he was brought to the [facility] on 03/21/2025 with a chief complaint of altered mental status, at that time, she is alert and fully oriented, she provided the following history I have seen and examined the patient, I have discussed with her nurse and herself, she is doing fine, alert and fully oriented, she had read about the m aterials I gave her, and she and her believed what she had was transient global amnesia She is not very interested in asleep treatment in the hospital, but she has noticed, with the bed head elevated, her sleep was better when she walked this morning and she is interested in adjusted bad UDS, 03/21/2025: Negative Plasma alcohol, 03/21/2025: Normal Urinalysis, 03/21/2025: WBC: One, urine leukocyte esterase: 1+ CBC, 03/21/2025: Unremarkable CMP, 03/21/2025, unremarkable Carotid Doppler, 03/21/2025: No hemodynamically significant stenosis noted in the right carotid system. No hemodynamically significant stenosis noted in the left carotid system CT head, 03/21/2025: No acute intracranial abnormality. MRI head, 03/21/2025: No acute cerebrovascular ischemia. Mild chronic microvascular ischemic changes. Paranasal sinus disease. vital signs Vital Sign Date Time Temp Pulse Resp B/P (MAP) Pulse Ox O2 Delivery O2 Flow Rate FiO2 03/22/25 21:31 135/89 03/22/25 20:00 16 96 Room Air* 0 21 03/22/25 17:00 97.4 72 97.4 Total Intake and Output 03/21/25 03/21/25 03/22/25 15:00 23:00 07:00 Intake Total 200 ml Balance 200 ml medications Current Medications Medications Dose Ordered Sig/Dale Route Start Time Stop Time Status Last Admin Dose Admin Acetaminophen/ Hydrocodone Bitart 1 tab Q4HP PRN PO 03/21/25 11:15 Ondansetron HCl 4 mg Q4HP PRN IV 03/21/25 11:15 Docusate Sodium 100 mg BIDPRN PRN PO 03/21/25 11:15 Acetaminophen 650 mg Q6HP PRN PO 03/21/25 11:15 03/22/25 21:32 650 MG Nitroglycerin 0.4 mg Q5MINP PRN SL 03/21/25 11:15 Morphine Sulfate 2 mg Q30M PRN IV 03/21/25 11:15 Amlodipine Besylate 5 mg HS PO 03/21/25 22:00 03/22/25 21:31 5 MG Atorvastatin Calcium 10 mg HS PO 03/21/25 22:00 03/22/25 21:31 10 MG Patient Own Medication 1 tab DAILY PO 03/22/25 10:00 UNV Citalopram Hydrobromide 20 mg DAILY PO 03/22/25 10:00 03/22/25 09:59 20 MG objective General: the patient is well developed and nourished. No acute distress. MENTAL STATUS: Awake and alert. Oriented to person, place, time and general circumstances. Able to give personal history. SPEECH, LANGUAGE, HIGHER CORTICAL FUNCTION: no aphasia or dysathria. CRANIAL NERVES: Pupils are equal, round and reactive. EOMs full and conjugate. No nystagmus. Facial sensation intact in all three divisions bilaterally. Mandibular strength intact. Facial muscles symmetrical and strength intact. SENSATION: Sensation to touch and pinprick is normal. MOTOR: Normal tone in the upper and lower extremity. Normal muscle bulk. No fasciculations. No abnormal movements or posturing. Muscle strength of the major groups in the extremities is 5/5. REFLEXES: Deep tendon reflexes normal and symmetrical. No pathological reflexes. CEREBELLAR/COORDINATION: Finger to nose and heel to samuel are normal bilaterally. GAIT/STATION: deferred. laboratory and microbiology Laboratory Tests 03/22/25 05:46 Test 03/22/25 05:46 Range/Units Serum Glucose 99 74-106 mg/dL Problem List Altered mental status on 03/21/2025 Transient global amnesia Rule out TIA/stroke Rule out partial complex seizure Sleep-related breathing disorder Obesity Assessment/Plan Monitoring Supportive treatment Telemetry EEG Weight control Hypersomnia precaution Address her sleep-related breathing disorder as outpatient I encouraged her to have a trial of wedge pillow or adjustable bed More recommendation per clinical course This medical document was created using an electronic medical record system with [employer] dictation system. Although this document has been carefully reviewed, there may still be some phonetic and typographical errors. These areas are purely typographical due to imperfections of the software programs, and do not reflect any compromise in the patient's medical care. Prognosis Poor Plan discussed with: Patient, Other Total Time (mins): 35 ANYA BARRIENTOS MD Mar 22, 2025 22:28
[2025-03-23 01:00] VITALS: BP 146/85; PULSE 46; RESP 17; TEMP 97.8; O2SAT 96
[2025-03-23 05:00] VITALS: BP 133/76; PULSE 61; RESP 18; TEMP 97.8; O2SAT 95
[2025-03-23 08:00] VITALS: PULSE 43; PULSE 64; RESP 14
[2025-03-23 09:00] VITALS: BP 148/93; PULSE 56; RESP 20; TEMP 96.9; O2SAT 93
--- NOTE | 2025-03-23 12:10 | DVHDS2 ---
Discharge Summary Date of Admission Mar 21, 2025 at 11:01 Date of Discharge: Mar 23, 2025 Labs/Diagnostic Data: Laboratory Results Test 03/22/25 05:46 03/21/25 08:02 03/21/25 07:57 03/21/25 07:55 White Blood Count 6.1 10^3/uL (4.4-10.8) Red Blood Count 4.83 10^6/uL (4.0-5.20) Hemoglobin 15.0 g/dL (12.2-16.2) Hematocrit 43.5 % (36.0-46.0) Mean Corpuscular Volume 89.9 fL (80.0-100.0) Mean Corpuscular Hemoglobin 31.1 pg (28.0-32.0) Mean Corpuscular Hemoglobin Concent 34.5 g/dL (32.0-36.0) Red Cell Distribution Width 13.7 % (11.8-14.3) Platelet Count 204 10^3/uL (140-450) Mean Platelet Volume 9.1 fL (6.9-10.8) Neutrophils (%) (Auto) 57.1 % (37.0-80.0) Lymphocytes (%) (Auto) 29.6 % (10.0-50.0) Monocytes (%) (Auto) 8.6 % (0.0-12.0) Eosinophils (%) (Auto) 4.3 % (0.0-7.0) Basophils (%) (Auto) 0.4 % (0.0-2.0) Neutrophils # (Auto) 3.5 10 ^3/uL (1.6-8.6) Lymphocytes # (Auto) 1.8 10 ^3/uL (0.4-5.4) Monocytes # (Auto) 0.5 10 ^3/uL (0-1.3) Eosinophils # (Auto) 0.3 10 ^3/uL (0-0.8) Basophils # (Auto) 0 10 ^3/uL (0-0.2) Nucleated Red Blood Cells 0.2 % Sodium Level 144 mmol/L (136-145) Potassium Level 4.5 mmol/L (3.5-5.1) Chloride Level 111 mmol/L (98-107) Carbon Dioxide Level 24 mmol/L (20-31) Anion Gap 9 (5-15) Blood Urea Nitrogen 13 mg/dL (9-23) Creatinine 0.73 mg/dL (0.550-1.02) Glomerular Filtration Rate Calc 95 mL/min (>90) BUN/Creatinine Ratio 17.8 (10.0-20.0) Serum Glucose 99 mg/dL (74-106) Calcium Level 11.0 mg/dL (8.7-10.4) Total Bilirubin 0.7 mg/dL (0.2-1.0) Aspartate Amino Transferase (AST) 19 U/L (<34) Alanine Aminotransferase (ALT) 24 U/L (7-40) Alkaline Phosphatase 99 U/L (46-116) Total Protein 6.7 g/dL (5.7-8.2) Albumin 4.6 g/dL (3.2-4.8) Plasma/Serum Blood Alcohol < 3.0 mg/dL (<10) POC Glucose 105 mg/dl (70-106) Urine Color Light-yellow (Yellow) Urine Clarity Clear (Clear) Urine pH 6.5 (5.0-9.0) Urine Specific [place] 1.007 (1.001-1.035) Urine Protein Negative (Negative) Urine Ketones Negative (Negative) Urine Blood Negative /uL (Negative) Urine Nitrite Negative (Negative) Urine Bilirubin Negative (Negative) Urine Urobilinogen Normal mg/dL (Negative) Urine Leukocyte Esterase 1+ /uL (Negative) Urine RBC None seen /hpf (0 - 4) Urine Microscopic WBC 1 /HPF (0-5) Urine Squamous Epithelial Cells Few /hpf (<5) Urine Bacteria None seen /hpf (None Seen) Urine Glucose Normal mg/dL (Normal) Urine Opiates Screen Neg (NEGATIVE) Urine Fentanyl Screen Neg (NEGATIVE) Urine Barbiturates Screen Neg (NEGATIVE) Urine Phencyclidine Screen Neg (NEGATIVE) Urine Amphetamines Screen Neg (NEGATIVE) Urine Benzodiazepines Screen Neg (NEGATIVE) Urine Cocaine Screen Neg (NEGATIVE) Urine Cannabinoids Screen Neg (NEGATIVE) Other Laboratory Tests 03/22/25 05:46 Brief Hx & Hospital Course: 59 F with HTN and MDD admitted for altered mental status. per husbwand was altered and brought to ED, no recollection of whats going on, afterwards seen by neuro and back on her baseline mental status. on my assessment she is not altered anymore. seen by neuro, possible transient global ishcemia. aptient mri clear, need to follow up with dc clinic and neuro as outpatient. Condition at Discharge: Good Final Diagnosis/Problems List delirium? stroke ruled out seizure? doubt obesity possible TERE HTN MDD Discharge Disposition: Home Discharge Instruct/Medications Diet: Regular Activity: No Restrictions, As Tolerated Follow Up/Referral: dc clinic 2 weeks neurology Discharge Statement: "Patient was advised to return to the ER or call 911 if any headaches, dizziness, shortness of breath, chest pain, abdominal pain, bleeding, fevers, or worsening of medical condition. Patient was counseled about treatment plan, medications, possible side effects, patientverbalized understanding. All questions were answered to the best of my ability. This discharge took greater then 30 minutes in planning, reviewing documentation, counseling the patient, and discussing with other team members." ASSESSMENT ASSESSMENT Assessment Date of Service: Mar 23, 2025 Billing Provider: LARISA JANSEN MD Common Visit Codes: 19455-CTN/OBS DISCH DAY >30min LARISA JANSEN MD Mar 23, 2025 12:10
[2025-03-23 13:00] VITALS: BP 146/93; PULSE 68; RESP 20; TEMP 96.8; O2SAT 96
[2025-03-23 13:35] VITALS: BP 146/93; PULSE 68; RESP 20; TEMP 96.8; O2SAT 96
--- NOTE | 2025-03-23 23:07 | DVHEEG2 ---
Neurology EEG Procedural Note Procedural Note EXAM DATE: 03/23/2025 REFERRING DOCTOR: Dr. Barrientos TECHNIQUE: Eighteen channels of EEG, 2 channels of EOG, and 1 channel of EKG were recorded using the International 10/20 system. CLINICAL DATA: The patient was referred for an EEG evaluation for the evidence of seizure disorder. MEDICATIONS: The chart BACKGROUND ACTIVITY: While the patient was awake, the background activity consisted of well regulated 9-10 Hz rhythmic waveforms, symmetrically distributed over both posterior quadrants and was reactive to eye opening. ACTIVATION: Hyperventilation: Not done Photic Stimulation: Not done Sleep: Not seen IMPRESSION: This is a normal EEG. No focal, lateralized, or epileptiform features are noted. If clinically indicated to rule out a seizure disorder, recommend repeat EEG with sleep deprivation. The EKG channel showed a regular heart rate of 66/[place] [address] ANYA BARRIENTOS MD Mar 23, 2025 23:06
--- NOTE | 2025-03-24 23:58 | DVHSR ---
APPROVED REPORT EXAM: Two-dimensional and M-mode echocardiogram with Doppler and color Doppler. Blood Pressure: 152/84 mmHg INDICATION Possible stroke RISK FACTORS Height: 70, Weight: 214 DIMENSIONS LVDd (3.8-5.7cm)LA (2D)3.5 (1.9-4.0cm)Aortic Root3.8 (2.0-3.7cm) LVDs (2.5-4.0cm)LA (MM) (1.9-4.0cm)Aortic Cusp Exc1.9 (1.5-2.0cm) EF (%) 68.0 (55-70%)Rt. Atrium3.2 (1.9-4.0cm)Asc. Aorta cm Mitral Valve MitralMitral Stenosis E wave0.62m/sMV Mean GR.mmHg A wave0.75m/sMV Peak GR.mmHg E/A ratio0.82D MVAcm2 DECEL [id number] 1/2 [id number] IVRTmsDop MVA2.56cm2 Aortic Valve Aortic ValveAortic Stenosis V11.31m/Eyad Mean GR.3mmHg V21.29m/Eyad Peak GR.7mmHg LVOT Diameter2.3 (1.8-2.4cm)Doppler AVA4.22cm2 Pulmonic Valve V20.76m/s Conclusion NORMAL LV EF AND IS 65% NORMAL VALVES NORMAL RV FUNCTION NO EFFUSION
== END 2025-03-23 14:03 | disposition home or self-care (01) | DRG 72 ==
LOC: ER 07:14 → OVERFLOW 11:01 → TELE-WESTW 21:40
PROVIDERS: ADMIT Student in an Organized Health Care Education/Training Program; ATTEND Student in an Organized Health Care Education/Training Program
DX: G93.41 Metabolic encephalopathy (principal); I10 Essential (primary) hypertension; E66.9 Obesity, unspecified; G45.4 Transient global amnesia; F32.A Depression, unspecified; E78.5 Hyperlipidemia, unspecified; Z68.28 Body mass index [BMI] 28.0-28.9, adult; R56.9 Unspecified convulsions; G47.33 Obstructive sleep apnea (adult) (pediatric); F32.9 Major depressive disorder, single episode, unspecified; Z90.710 Acquired absence of both cervix and uterus; Z81.8 Family history of other mental and behavioral disorders; Z82.49 Family history of ischemic heart disease and other diseases of the circulatory system; Z83.3 Family history of diabetes mellitus
CPT/HCPCS: 36415; 70450; 70551; 80053; 80307; 80320; 81001; 82962; 85025; 93306; 93886; 95819; 96374; G0378